=== PATIENT | female | born 1955 | race American Indian/Alaskan Native ===

== ENCOUNTER 2017-09-11 18:13 | Emergency (ER) | payer OTHER ==
[2017-09-11 19:25] LABS: Basophils % (Auto) 0.6 % (0.0-1.8); Eosinophils # (Auto) 0.2 K/mm3 (0.0-0.4); Eosinophils % (Auto) 2.8 % (0.0-4.3); Hematocrit 38.1 % (30.3-42.9); Hemoglobin 12.8 gm/dl (10.1-14.3); Lymphocytes # (Auto) 2.6 K/mm3 (1.2-5.4); Lymphocytes % (Auto) 45.6 % (13.4-35.0); Mean Corpuscular HGB Conc 34 % (30-34); Mean Corpuscular Hemoglobin 28 pg (28-32); Mean Corpuscular Volume 83 fl (79-97); Monocytes # (Auto) 0.3 K/mm3 (0.0-0.8); Monocytes % (Auto) 4.7 % (0.0-7.3); Platelet Count 284 K/mm3 (140-440); Red Blood Count 4.58 M/mm3 (3.65-5.03); Red Cell Distribution Width 14.1 % (13.2-15.2)
[2017-09-11 19:42] LABS: BUN/Creatinine Ratio 26; Blood Urea Nitrogen 23 mg/dL (7-17); Calcium 9.1 mg/dL (8.4-10.2); Hemolysis Index 9
[2017-09-11 19:53] VITALS: BP 102/56
[2017-09-11] MEDS ORDERED: TYLENOL PO ONE (20:03)
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
--- NOTE | 2017-09-11 20:59 | XRay Report ---
FINAL REPORT PROCEDURE: XR CHEST 1V AP TECHNIQUE: Chest radiograph anteroposterior view. CPT 50149 HISTORY: chest pain COMPARISON: No prior studies are available for comparison. FINDINGS: Heart: Normal. Mediastinum/Vessels: Normal. Lungs/Pleural space: Normal. Bony thorax: No acute osseous abnormality. Life support devices: None. IMPRESSION: No acute cardiopulmonary abnormality.
== END 2017-09-11 21:15 | disposition home or self-care (01) ==
LOC: ED 18:13
DX: R07.89 Other chest pain (principal); M54.2 Cervicalgia; G89.29 Other chronic pain; M25.512 Pain in left shoulder
CPT/HCPCS: 36415; 71045; 80048; 84484; 85025; 93005; 93010

== ENCOUNTER 2017-09-30 06:48 | Day surgery (SDC) | payer OTHER ==
[2017-09-30] MEDS ORDERED: ECOTRIN PO ONE ×2 (07:16→07:27)
[2017-09-30] MEDS ORDERED: NACL 0.9% 500 ML 500 ML ONE (07:26)
[2017-09-30] MEDS ORDERED: NACL 0.9% 500 ML 500 ML IV SCH (08:00)
[2017-09-30 08:04] LABS: INR 0.84 (0.87-1.13)
[2017-09-30 08:11] LABS: BUN/Creatinine Ratio 20; Blood Urea Nitrogen 16 mg/dL (7-17); Calcium 9.1 mg/dL (8.4-10.2); Hemolysis Index 219
[2017-09-30 08:15] LABS: Basophils % (Auto) 0.7 % (0.0-1.8); Eosinophils # (Auto) 0.2 K/mm3 (0.0-0.4); Eosinophils % (Auto) 3.3 % (0.0-4.3); Hemoglobin 11.6 gm/dl (10.1-14.3); Lymphocytes # (Auto) 1.9 K/mm3 (1.2-5.4); Lymphocytes % (Auto) 35.1 % (13.4-35.0); Mean Corpuscular HGB Conc 32 % (30-34); Mean Corpuscular Hemoglobin 27 pg (28-32); Mean Corpuscular Volume 83 fl (79-97); Monocytes # (Auto) 0.4 K/mm3 (0.0-0.8); Monocytes % (Auto) 7.5 % (0.0-7.3); Platelet Count 258 K/mm3 (140-440); Red Blood Count 4.33 M/mm3 (3.65-5.03); Red Cell Distribution Width 14.1 % (13.2-15.2)
[2017-09-30] MEDS ORDERED: SUBLIMAZE ONE (10:01)
[2017-09-30] MEDS ORDERED: VERSED ONE (10:01)
[2017-09-30] MEDS ORDERED: HEPARIN/NS 5000 UNIT/500ML(CATH LAB) 1,000 ML IR ONE (10:01)
[2017-09-30] MEDS ORDERED: HEPARIN 10,000 UNITS/10 ML ONE (10:01)
[2017-09-30] MEDS ORDERED: CALAN ONE (10:02)
[2017-09-30] MEDS ORDERED: NITROGLYCERIN SYRINGE 3 ML ONE (10:02)
[2017-09-30] MEDS ORDERED: XYLOCAINE 2% INFILTRATI ONE (10:02)
[2017-09-30] MEDS ORDERED: ULTRAM PO PRN (10:55)
--- NOTE | 2017-09-30 10:58 | Discharge Summary ---
Short Stay Discharge Plan Activity: advance as tolerated Weight Bearing Status: Full Weight Bearing Diet: low fat, low cholesterol, low salt Wound: keep clean and dry Special Instructions: no heavy lifting (3 days) Follow up with: LUI NOLEN MD [Primary Care Provider] - 7 Days CRISTIAN MAN MD [Staff Physician] - 7 Days
[2017-09-30] MEDS ORDERED: NACL 0.9% 1000 ML 1,000 ML IV SCH (11:00)
--- NOTE | 2017-09-30 11:32 | Cardiac Catherization Report ---
REASON FOR PROCEDURE: Abnormal thallium stress test. PROCEDURES: 1. Left heart catheterization. 2. Selective left and right coronary angiography. 3. Left ventricular angiography. 4. Sedations time, start 10:24, end 10:46. The patient was prepped and draped in a sterile fashion after informed consent. The right radial cath site was prepped and draped after a negative Christopher's test. The right radial artery was entered using Seldinger technique followed by placement of a 6-Palau[place] hydrophilic sheath. Routine radial cocktail was administered via the sheath. Selective left and right coronary angiography was performed. A left coronary cannulation was optimally achieved using a #3.0 left Angeline. Right coronary was cannulated with the #3.5 left Angeline. The #4 right Angeline was used for left ventricular angiography. The catheters were removed, sheath removed, and hemostasis achieved using a TR band. The patient was returned to the post-procedure unit in a stable condition. There were no complications. FINDINGS: HEMODYNAMICS: Left ventricle end diastolic pressure was 15. Ascending aortic pressure was 111/57. There was no significant pressure gradient on pullback across the aortic valve. CORONARY ANGIOGRAPHY: The left main coronary artery was angiographically normal. The left anterior descending artery and its diagonal branches were angiographically normal. The circumflex artery and its obtuse marginal branches were angiographically normal. The right coronary artery was dominant and similarly angiographically normal. Left ventricular systolic function was at the lower limits of normal, estimated ejection fraction approximately 50%. CONCLUSION: 1. Angiographically normal coronary arteries. 2. Left ventricular systolic function at the lower limits of normal, estimated ejection fraction of 50%. RECOMMENDATION: Risk factor modification and medical . JOB# [id number] CA/NTS
[2017-09-30 14:35] VITALS: BP 128/72
== END 2017-09-30 14:40 | disposition home or self-care (01) ==
LOC: CATHLABREC 06:48
PROVIDERS: ATTEND Internal Medicine Cardiovascular Disease
DX: I99.8 Other disorder of circulatory system (principal); R07.9 Chest pain, unspecified; M17.0 Bilateral primary osteoarthritis of knee; Z79.82 Long term (current) use of aspirin; Z79.899 Other long term (current) drug therapy; Z98.890 Other specified postprocedural states; Z82.49 Family history of ischemic heart disease and other diseases of the circulatory system; Z80.51 Family history of malignant neoplasm of kidney; Z80.42 Family history of malignant neoplasm of prostate
CPT/HCPCS: 36415; 80048; 84132; 85025; 85610; 93005; 93010; 93458; 99156; 99157; C1894; J1644; J2250; J3010; J7040; Q9967